=== PATIENT | male | born 1955 | race Caucasian/White ===

== ENCOUNTER → 2018-10-28 | Outpatient (CLI) | payer BC | LOC: COL.RAD 10:48 | DX: E04.2 Nontoxic multinodular goiter (principal); R94.6 Abnormal results of thyroid function studies ==

== ENCOUNTER → 2018-11-03 | Outpatient (CLI) | payer BC | LOC: EDBD → COL.RAD 13:05 | DX: E05.90 Thyrotoxicosis, unspecified without thyrotoxic crisis or storm (principal); R94.6 Abnormal results of thyroid function studies | CPT/HCPCS: A9516 ==